=== PATIENT | female | born 1955 | race Caucasian/White ===

== ENCOUNTER 2021-04-26 08:49 | Outpatient (CLI) | payer MEDICARE, MEDICAID, SELFPAY ==
--- NOTE | 2021-04-26 09:23 | ECHO_ITS ---
Patient Info Name: Kalyani García Age: 65 years : 1955 Gender: Female Ht: 63 in Wt: 265 lbs BSA: 2.38 m2 HR: 74 bpm BP: 127 / 76 mmHg Heart Rhythm: Sinus Rhythm Technical Quality: Fair Exam Date: 04/26/2021 9:44 AM Exam Location: [facility] Patient Status: Outpatient Admit Date: 04/26/2021 Staff Ordering Physician: Carl Quiles APRN Works Manager: Mariela Recinos RDCS Attending Provider: Kisha Martinez MD Exam Type: CA echo doppler color flow Study Info Indications - i27.20-Pulmonary hypertension, unspecified Complete two-dimensional, color flow and Doppler transthoracic echocardiogram is performed. History/Risk Factors COPD: On Home Oxygen, On Meds Summary 1. Complete two-dimensional, color flow and Doppler transthoracic echocardiogram is performed. 2. Left ventricular chamber dimension is normal. 3. Left ventricular systolic function is normal, estimated at 55-60%. 4. The left ventricular diastolic function is grade I diastolic dysfunction. 5. E/e' 14 is mildly elevated. 6. Left atrial chamber dimension is mildly enlarged. 7. No pulmonary hypertension, estimated pulmonary arterial systolic pressure is 32 mmHg. Left Ventricle E/e' 14 is mildly elevated. Left ventricular chamber dimension is normal. Left ventricular systolic function is normal, estimated at 55-60%. The left ventricular diastolic function is grade I diastolic dysfunction. Right Ventricle Right ventricular systolic function is normal and with normal TAPSE 2.9 cm. Right ventricular chamber dimension is normal. Left Atria Left atrial chamber dimension is mildly enlarged. Right Atria Right atrial chamber dimension is normal. Aortic Valve The aortic valve is trileaflet. There is no aortic valve stenosis. There is no aortic valve regurgitation. Pulmonic Valve There is no pulmonic regurgitation. Mitral Valve There is no mitral valve stenosis. There is no mitral valve regurgitation. Tricuspid Valve There is no tricuspid valve regurgitation. No pulmonary hypertension, estimated pulmonary arterial systolic pressure is 32 mmHg. Pericardium/Pleural There is no pericardial effusion. Inferior Vena Cava Normal inferior vena cava with >50% collapse upon inspiration consistent with normal right atrial pressure, 5 mmHg. Aorta The aortic root size at the sinus of Valsalva is normal. Left Ventricular Outflow Tract Name Value Normal LVOT 2D LVOT Diameter 2.1 cm LVOT Doppler LVOT Peak Gradient 6 mmHg LVOT Mean Gradient 3 mmHg LVOT VTI 28 cm LVOT VTI/AV VTI Ratio 0.7 LVOT Stroke Volume 100 ml LVOT CO 16.9 l/min LVOT CI 7.1 l/min/m2 Pulmonic Valve Name Value Normal RVOT Doppler
[2021-04-26 10:30] VITALS: PULSE 67; O2SAT 94
[2021-04-26 10:33] VITALS: PULSE 96; O2SAT 86
[2021-04-26 10:34] VITALS: O2SAT 87
[2021-04-26 10:35] VITALS: PULSE 90; O2SAT 90
[2021-04-26 10:45] VITALS: PULSE 70; O2SAT 94
--- NOTE | 2021-04-26 11:05 | HOMEO2EVAL ---
Evaluation was performed at [facility] Home Oxygen Evaluation RC: Home Oxygen (O2) Evaluation Start: 04/26/21 11:03 Freq: Status: Active Protocol: RPE Activity Type Activity Date Activity User E-Sign Co-Sign Detail Recorded Client Recorded Date Recorded By Document 04/26/21 10:30 TONO [id number] 04/26/21 11:05 TONO Document 04/26/21 10:33 TONO [id number] 04/26/21 11:05 TONO Document 04/26/21 10:34 TONO [id number] 04/26/21 11:05 TONO Document 04/26/21 10:35 TONO [id number] 04/26/21 11:05 TONO Document 04/26/21 10:45 TONO [id number] 04/26/21 11:05 TONO 04/26/21 04/26/21 04/26/21 10:30 10:33 10:34 Home O2 Evaluation Test Phase Resting Exercise Exercise Oxygen Delivery Room Air Room Air Nasal Cannula Oxygen Flow Rate (L/min) 1 Pulse Oximetry (90-100 %) 94 86 L 87 L Pulse Rate (60-100 beats/min) 67 96 Ambulation Distance (feet) Home Oxygen Evaluation Comments Treatment Charges O2 Evaluation - Outpatient 04/26/21 04/26/21 10:35 10:45 Home O2 Evaluation Test Phase Exercise Resting Oxygen Delivery Nasal Cannula Room Air Oxygen Flow Rate (L/min) 2 Pulse Oximetry (90-100 %) 90 94 Pulse Rate (60-100 beats/min) 90 70 Ambulation Distance (feet) 600 Home Oxygen Evaluation Comments PT USED WALKER, REQUIRES 2 L WITH ACTIVITY Treatment Charges
--- NOTE | 2021-04-27 14:24 | WPDPFTINT ---
PFT Procedure Performed PFT Procedure Performed Spirometry with Pre/Post Bronchodilator Plethysmography (Lung Vol) Diffusing Cap (DLCO) Flow Vol Loop PFT Interpretation lung volumes were measured with the body plethysmography method. Lung volumes are unremarkable. Spirometry showed diminished expiratory flow rates and a diminished FEV1 to FVC ratio of 66%, consistent with obstructive airway disease. Following administration of a bronchodilator there was no change in the expiratory flow rates. Lung diffusion capacity is mildly reduced at 64% predicted. The flow volume loop is consistent with obstructive airway disease. In comparison to previous study in 2015 the post bronchodilator FVC and FEV1 are now lower by approximately 100 mL each. Lung diffusion capacity is now greater by approximately 15%. Impression: Moderate obstructive airway disease with no response to bronchodilators on this testing. Mildly reduced lung diffusion capacity.
== END 2021-04-26 08:50 | disposition home or self-care (01) ==
PROVIDERS: PCP Nurse Practitioner Family; Visit Provider Internal Medicine Critical Care Medicine
DX: I27.20 Pulmonary hypertension, unspecified (principal); R94.2 Abnormal results of pulmonary function studies
CPT/HCPCS: 93306; 94060; 94618; 94726; 94729

== ENCOUNTER 2022-01-12 09:00 | Outpatient (CLI) | payer MEDICARE, MEDICAID, SELFPAY ==
--- NOTE | ~2022-01-12 | MM_ITS ---
EXAMINATION: MM screening parul BI w palmer HISTORY: Screening TECHNIQUE: Craniocaudal and mediolateral oblique 3-D tomosynthesis images were obtained and synthetic 2-D images were generated. CAD analysis was submitted and interpreted. COMPARISON: No prior mammogram is available for comparison at this institution. BREAST PARENCHYMAL COMPOSITION: There are scattered areas of fibroglandular density. FINDINGS: There is a cluster of calcifications in the right breast centrally. There is no mammographi c evidence for malignancy in the left breast. IMPRESSION: 1. Clustered indeterminate right breast calcifications located centrally. 2. Magnification views are recommended. BI-RADS Category 0: Incomplete: Needs additional imaging evaluation. Reviewed, dictated and finalized at location L.
== END 2022-01-12 09:01 | disposition home or self-care (01) ==
PROVIDERS: PCP Nurse Practitioner Family; Visit Provider Nurse Practitioner Family
DX: Z12.31 Encounter for screening mammogram for malignant neoplasm of breast (principal); R92.8 Other abnormal and inconclusive findings on diagnostic imaging of breast
CPT/HCPCS: 77063; 77067

== ENCOUNTER 2022-01-27 12:54 | Outpatient (CLI) | payer MEDICARE, MEDICAID, SELFPAY ==
--- NOTE | ~2022-01-27 | MM_ITS ---
EXAMINATION: MM diagnostic mammo unilat RT HISTORY: Follow-up right breast calcifications TECHNIQUE: Additional 3-D tomosynthesis images of the right breast were performed and synthetic 2-D i mages were generated. CAD analysis was submitted and interpreted. COMPARISON: 01/12/2022 BREAST PARENCHYMAL COMPOSITION: Breast composed of scattered areas of fibroglandular density FINDINGS: There is a cluster of indeterminate calcifications in the central aspect of the right breas t. There are no suspicious masses or architectural distortion. IMPRESSION: 1. Clustered indeterminate right breast calcifications. 2. Stereotactic right breast biopsy recommended. BI-RADS category 4, suspicious findings. Reviewed, dictated and finalized at location A.
== END 2022-01-27 12:55 | disposition home or self-care (01) ==
LOC: ANHIMG 12:57
PROVIDERS: PCP Nurse Practitioner Family; Visit Provider Nurse Practitioner Family
DX: R92.8 Other abnormal and inconclusive findings on diagnostic imaging of breast (principal)
CPT/HCPCS: 77065

== ENCOUNTER 2025-02-19 10:20 | Emergency (ER) | payer MEDICARE, SELFPAY ==
--- NOTE | ~2025-02-19 | CT_ITS ---
EXAMINATION: CT abdomen pelvis w con DATE: 02/19/2025 12:00 INDICATION: Hernia. Pain. TECHNIQUE: Computed tomography (CT) of the abdomen and pelvis was performed with intravenous contrast. The dose-length product was 1364.35 mGy-cm. COMPARISON: CT abdomen and pelvis 08/19/2017 FINDINGS: There are a few small reticular opacities in the lower lungs. Stable too small to characterize low-attenuation lesion in the right lobe of the liver dating back to 2018. Interval decrease in the size of the previously identified lesion in the left lobe of the liver which currently measures 9 mm, previously measured 1.9 cm. No new liver lesions. Cholecystectomy. Spleen is unremarkable. There are a few too small to characterize low-attenuation lesions in the kidneys. Adrenal glands are stable. Pancreas is unremarkable. Abdominal aorta is not aneurysmal. No enlarged lymph nodes in the abdomen or pelvis. Bladder is unremarkable. CT of the uterus is unremarkable. No free fluid in the abdomen or pelvis. Moderate to large ventral hernia along the anterior pelvic wall with fat and bowel loops in the hernia sac. The opening to the hernia sac measures 6.3 cm. No bowel obstruction at this time. Bones appear osteopenic. Multilevel degenerative change throughout the visualized spine. Grade 1 anterolisthesis of L4 on L5. IMPRESSION: 1. Moderate to large ventral hernia along the anterior pelvic wall with fat and bowel loops in the hernia sac. The opening to the hernia sac measures 6.3 cm. No bowel obstruction at this time. 2. Cholecystectomy. Reviewed, dictated and finalized at location Q.
--- OUTSIDE RECORDS SUMMARY | 2025-02-19 10:25 | XMS_ITS | Clinical Summary ---
Author Organization [facility] Address [address] [place] [address] Care Team Providers Care Geochemist Name Role Phone Tess Landin APRN-SALES REPRESENTATIVE [employer] Primary Care Provider [phone] Source Comments [facility],non-owned Affiliates and Associated Physician Practices is amultiple site organization consisting of ambulatory clinics and hospital sitesin [place], [place], [place] and [place]. This disclosure is being madepursuant to the Care Everywhere program and may not contain all information available regarding this patient. Last updated 18.[facility] Social History Tobacco Use Types Packs/Day Years Used Date Smoking Tobacco: Never Assessed Comments Unknown Sex and Gender Information Value Date Recorded Sex Assigned at Not on file Legal Sex Female 11:58 AM CDT Gender Identity Not on file Sexual Orientation Not on file Plan of Treatment Health Maintenance Due Date Last Done Comments BONE DENSITY TESTING 1955 COLOGUARD (AGES 45-75) - COL ON CA SCREENING 1955 COLON MONITORING 1955 COLONOSCOPY - COLON CA SCREENING 1955 CT COLONOGRAPHY - COLON CA SCREENING 1955 Colorectal Cancer Screening 1955 FIT - COLON CA SCREENING 1955 FLEX SIG - COLON CA SCREENING 1955 LIPID TESTING 1955 MAMMOGRAM 1955 HEPATITIS C SCREENING 05/02/1974 DTAP/TDAP/TD VACCINES (1 - Tdap) 1975 PNEUMOCOCCAL VACCINE 50+ (1 of 1 - PCV) 2006 ZOSTER VACCINE (1 of 2) 2006 COVID-19 VACCINE ( - 2023-2 5 season) 2024 DEPRESSION SCREENING 06/25/2024 INFLUENZA VACCINE (#1) 2025 Respiratory Syncytial Virus (RSV) Vaccine Pt: or over 60 yrs (1 - 1-dose 75+ series) 2031 HEPATITIS B VACCINE Aged Out No longe r eligible based on patient's age to complete this topic HIB VACCINE Aged Out No longer eligi ble based on patient's age to complete this topic HPV VACCINE Aged Out No longer eligi ble based on patient's age to complete this topic MENINGOCOCCAL (Group B) VACC INE SHARED DECISION-MAKING Aged Out No longer eligibl e based on patient's age to complete this topic MENINGOCOCCAL GROUPS A/C/Y/W VACCINE Aged Out No longer eligible b ased on patient's age to complete this topic Insurance [facility] Care Teams Geochemist Relationship Specialty Start Date End Date Tess Landin APRN-CNP [address] [place] [id number] PCP - General 04/30/20
[2025-02-19 10:31] VITALS: BP 152/75; BP 161/73; PULSE 74; RESP 17; RESP 24; TEMP 37; O2SAT 90; O2SAT 93
--- NOTE | 2025-02-19 10:51 | ED.GENADULT ---
HPI - General Adult General Chief complaint: Abdominal Pain Stated complaint: ?bleeding hernia Time Seen by Provider: 02/19/25 10:24 History of Present Illness HPI narrative: 61-year-old female presented to the emergency department for evaluation for bleeding around her umbilical hernia. Patient does have a longstanding large umbilical hernia. Patient began noticing some bleeding from the anterior left side of the hernia. Patient denies any abdominal pain. Patient began noticing some skin breakdown and bleeding from the lateral edge of the umbilical hernia last night. Related Data Home Medications ?Medication ?Instructions ?Recorded ?Confirmed ?Last Taken ?Type albuterol sulfate 2.5 mg/3 mL 2.5 mg inhalation Q6H 09/15/19 07/26/20 Unknown History (0.083 %) solution for nebulization albuterol sulfate 90 mcg/actuation 1 puff inhalation Q4H PRN 09/15/19 07/26/20 Unknown History aerosol inhaler (Ventolin HFA) aspirin 81 mg tablet,delayed 81 mg PO DAILY 09/15/19 07/26/20 Unknown History release (Adult Aspirin Regimen) cholecalciferol (vitamin D3) 1,250 50,000 unit PO WEEKLY 09/15/19 07/26/20 Unknown History mcg (50,000 unit) oral wafer furosemide 20 mg tablet 20 mg PO QAM 09/15/19 07/26/20 Unknown History hydrocodone 10 mg-acetaminophen 1 tablet PO Q6H PRN 09/15/19 07/26/20 Unknown History 325 mg tablet lisinopril 10 mg tablet 10 mg PO DAILY 09/15/19 07/26/20 Unknown History omeprazole 20 mg capsule,delayed 20 mg PO DAILY 09/15/19 07/26/20 Unknown History release spironolactone 100 mg tablet 50 mg PO DAILY 09/15/19 07/26/20 Unknown History Allergies Allergy/AdvReac Type Severity Reaction Status Date / Time No Known Allergies Allergy Unverified 03/31/21 09:46 Review of Systems Review of Systems: All systems reviewed & are unremarkable except as noted in HPI and below PMFSH Past Medical History Medical History (Updated 02/19/25 @ 12:47 by Marcos Kasper MD) BREN (obstructive sleep apnea) Pulmonary hypertension Arthritis Morbid obesity BREN treated with BiPAP COPD (chronic obstructive pulmonary disease) Smoking Diastolic dysfunction Dyslipidemia Essential hypertension Surgical History Surgical History H/O tubal ligation Family History Family History Father Family history of diabetes mellitus in first degree relative Acute myocardial infarction Diabetes mellitus Hypertension Family history of heart disease in male family member before age 55 Patient's father is in good health Mother Hypertension Family history of Alzheimer's disease Patient's mother is in good health Sibling Family history of chronic obstructive pulmonary disease Patient's sister is in good health Grandparent Family history of malignant neoplasm of breast Other Family history of cardiovascular disease Social History Social History Smoking status: Current every day smoker Smoking end date: 06/25/14 Alcohol intake: current Exam Narrative: APPEARANCE: Well appearing, no pain, no distress, well-nourished. HEAD: normocephalic, atraumatic. EYES: PERRLA/EOMI, conjunctivae clear. NOSE: Normal no drainage EARS:TMS clear with good light reflex. THROAT: Pharynx clear, no exudate. NECK: Supple. No adenopathy, no masses. RESPIRATORY: Airway patent, respirations nonlabored. Clear to auscultation bilaterally, no rales, rhonchi, wheezing. CARDIOVASCULAR: Regular rate and rhythm without murmurs rubs or gallops. ABDOMINAL: Soft, nontender, nondistended, normal bowel sounds MUSCULOSKELETAL: Moves all extremities. Strength/ROM intact, No edema, No calf tenderness. NEURO: Alert. Cranial nerves II through XII intact. Good gait. Good coordination SKIN: Skin breakdown around left side of umbilical hernia Course Vital Signs Vital signs: Vital Signs Temperature 98.6 F 02/19/25 10:31 Pulse Rate 74 02/19/25 10:31 Respiratory Rate 24 H 02/19/25 10:31 Blood Pressure 161/73 H 02/19/25 10:31 Pulse Oximetry 90 02/19/25 10:31 Temperature 98.6 F 02/19/25 10:31 Pulse Rate 78 02/19/25 13:10 Respiratory Rate 17 02/19/25 13:10 Blood Pressure 129/98 H 02/19/25 13:10 Pulse Oximetry 91 02/19/25 13:10 Medical Decision Making MDM Narrative Medical decision making narrative: 69-year-old female presents to the emergency department for evaluation for bleeding from the wound hand skin breakdown on along the side of her umbilical hernia. Patient is currently afebrile with no leukocytosis and hemoglobin of 13.9. INR of 1.1 no acute abnormalities on her CMP CT scan does confirm a large hernia with no evidence of obstruction. Hernia was able to be reduced. Patient does have some skin breakdown at approximately the 1-3 o'clock range of the hernia. No wound requiring repair. Patient was educated on wound care and patient was provided abdominal binder for comfort. Patient was also provided outpatient follow-up with surgery. Differential Diagnosis Differential Diagnosis: Incarcerated hernia, laceration, candidiasis, skin breakdown, umbilical hernia Vital Signs Vital Signs: Vital Signs Temperature 98.6 F 02/19/25 10:31 Pulse Rate 74 02/19/25 10:31 Respiratory Rate 24 H 02/19/25 10:31 Blood Pressure 161/73 H 02/19/25 10:31 Pulse Oximetry 90 02/19/25 10:31 Temperature 98.6 F 02/19/25 10:31 Pulse Rate 78 02/19/25 13:10 Respiratory Rate 17 02/19/25 13:10 Blood Pressure 129/98 H 02/19/25 13:10 Pulse Oximetry 91 02/19/25 13:10 Lab Data Lab results reviewed: Yes I reviewed the patient's lab results. 02/19/25 10:54 02/19/25 10:54 Labs: Lab Results 02/19/25 Range/Units 10:54 WBC 6.5 (4.5-10.0) K/mm3 RBC 5.22 (4.2-5.4) M/mm3 Hgb 13.9 (12.0-15.0) g/dL Hct 45.5 (37.0-47.0) % MCV 87.2 (80-100) fl MCH 26.6 (26-34) pg MCHC 30.5 L (32-36) g/dl RDW 14.4 (11.5-14.5) % Plt Count 241 (150-375) k/mm3 MPV 9.0 (7.4-10.4) fl Immature Gran % (Auto) 0.3 (0-0.5) % Neut % (Auto) 73.1 (45.5-73.1) % Lymph % (Auto) 13.3 L (18.3-44.2) % [place] % (Auto) 11.6 H (2.6-8.5) % Eos % (Auto) 1.4 (0-4.4) % Baso % (Auto) 0.3 (0.2-1.2) % Lymph # (Auto) 0.86 L (0.9-3.2) K/mm3 [place] # (Auto) 0.8 H (0.1-0.6) K/mm3 Eos # (Auto) 0.1 (0-0.3) K/mm3 Baso # (Auto) 0.0 (0.0-0.1) K/mm3 Abs Immat Gran (auto) 0.02 (0.00-0.031) K/mm3 Absolute Neuts (auto) 4.7 (1.3-6.7) K/mm3 Absolute Nucleated RBC 0.000 (0.0-0.012) K/mm3 Nucleated RBC % 0.0 (0.0-0.2) % PT 13.9 (11.1-14.7) Seconds INR 1.1 APTT 27.6 (22.3-36.8) Seconds Sodium 135 L (137-145) mmol/L Potassium 4.6 (3.4-5.0) mmol/L Chloride 98 (98-107) mmol/L Carbon Dioxide 33 H (22-30) mmol/L Anion Gap 4 (4-12) mmol/L BUN 11 (7-17) mg/dL Creatinine 0.55 L (0.7-1.0) mg/dL Estim Creat Clear Calc Not Reportable Estimated GFR > 60 (59 - ) Glucose 110 (65-110) mg/dL Lactic Acid 1.3 (0.7-2.0) mmol/L Calcium 9.2 (8.4-10.2) mg/dL Total Bilirubin 0.7 (0.2-1.3) mg/dL AST 32 (14-36) U/L ALT 22 (6-35) U/L Alkaline Phosphatase 65 (38-126) U/L Total Protein 7.0 (6.3-8.2) g/dL Albumin 3.8 (3.5-5.1) g/dL Imaging Data Radiologist's impression: Impressions Abdomen/Pelvis CT 02/19/25 12:06 IMPRESSION: 1. Moderate to large ventral hernia along the anterior pelvic wall with fat and bowel loops in the hernia sac. The opening to the hernia sac measures 6.3 cm. No bowel obstruction at this time. 2. Cholecystectomy. Discharge Plan Discharge Clinical Impression: Hernia, Wound of abdomen Patient Disposition: Home Condition: Stable Instructions: Antibiotic Form, Umbilical Hernia (ED), Abdominal Binder (ED) Additional Instructions: Wound care as directed. Abdominal binder as directed. Have close follow-up with surgery. If you have any worsening symptoms then please call or return to the emergency department. Patient Language: Faroese Prescriptions: No Action spironolactone 100 mg tablet 50 mg PO DAILY furosemide 20 mg tablet 20 mg PO QAM cholecalciferol (vitamin D3) 50,000 unit wafer 50,000 unit PO WEEKLY albuterol sulfate [Ventolin HFA] 90 mcg/actuation HFA aerosol inhaler 1 puff INHALATION Q4H PRN omeprazole 20 mg capsule,delayed release(DR/EC) 20 mg PO DAILY lisinopril 10 mg tablet 10 mg PO DAILY hydrocodone-acetaminophen 10-325 mg tablet 1 tablet PO Q6H PRN aspirin [Adult Aspirin Regimen] 81 mg tablet,delayed release (DR/EC) 81 mg PO DAILY albuterol sulfate 2.5 mg /3 mL (0.083 %) solution for nebulization 2.5 mg INHALATION Q6H Bevespi Aerosphere 9-4.8 mcg HFA aerosol inhaler 2 puff inhalation Q12H 30 Days Qty: 10.7 5RF Follow-up/Referrals: NOELLE,JORJE SALINAS [Primary Care Provider] Kelby Santos MD [Physician, General Surgery]
[2025-02-19 11:01] VITALS: PULSE 71; RESP 16; O2SAT 94
[2025-02-19 11:06] LABS: Hematocrit 45.5 % (37.0-47.0); Hemoglobin 13.9 g/dL (12.0-15.0); Immature Granulocyte Percent A 0.3 % (0-0.5); Lymphocytes Absolute Auto 0.86 K/mm3 (0.9-3.2); Mean Corpuscular HGB Conc 30.5 g/dl (32-36); Mean Corpuscular Hemoglobin 26.6 pg (26-34); Mean Corpuscular Volume 87.2 fl (80-100); Nucleated Red Blood Cells Absolute Auto 0.000 K/mm3 (0.0-0.012); Nucleated Red Blood Cells Perc 0.0 % (0.0-0.2); Platelet Count Result 241 k/mm3 (150-375); Red Blood Count 5.22 M/mm3 (4.2-5.4); White Blood Count 6.5 K/mm3 (4.5-10.0)
[2025-02-19 11:18] LABS: Alanine Aminotransferase 22 U/L (6-35); Albumin Level 3.8 g/dL (3.5-5.1); Alkaline Phosphatase 65 U/L (38-126); Anion Gap 4 mmol/L (4-12); Aspartate Amino Transferase 32 U/L (14-36); Bilirubin,Total 0.7 mg/dL (0.2-1.3); Blood Urea Nitrogen 11 mg/dL (7-17); Calcium 9.2 mg/dL (8.4-10.2); Carbon Dioxide 33 mmol/L (22-30); Chloride 98 mmol/L (98-107); Estimated Glomerular Filt Rate > 60; Glucose 110 mg/dL (65-110); Potassium 4.6 mmol/L (3.4-5.0); Sodium 135 mmol/L (137-145); Total Protein 7.0 g/dL (6.3-8.2)
[2025-02-19 11:21] LABS: INR 1.1; Partial Thromboplastin Time 27.6 Seconds (22.3-36.8); Prothrombin Time 13.9 Seconds (11.1-14.7)
[2025-02-19 11:46] VITALS: BP 122/77; PULSE 72; RESP 18; O2SAT 95
[2025-02-19 13:10] VITALS: BP 129/98; PULSE 78; RESP 17; O2SAT 91
== END 2025-02-19 13:49 | disposition home or self-care (01) ==
PROVIDERS: Emergency Provider Emergency Medicine; PCP Nurse Practitioner Family
DX: K43.9 Ventral hernia without obstruction or gangrene (principal); L98.8 Other specified disorders of the skin and subcutaneous tissue; I27.20 Pulmonary hypertension, unspecified; I11.9 Hypertensive heart disease without heart failure; J44.9 Chronic obstructive pulmonary disease, unspecified; E66.01 Morbid (severe) obesity due to excess calories; E78.5 Hyperlipidemia, unspecified; G47.33 Obstructive sleep apnea (adult) (pediatric); M19.90 Unspecified osteoarthritis, unspecified site; Z87.891 Personal history of nicotine dependence; Z90.49 Acquired absence of other specified parts of digestive tract; Z79.899 Other long term (current) drug therapy; Z79.82 Long term (current) use of aspirin
CPT/HCPCS: 36415; 74177; 80053; 83605; 85025; 85610; 85730; 99284; Q9967

== ENCOUNTER 2025-04-20 12:25 | Emergency (ER) | payer MEDICARE, SELFPAY ==
--- NOTE | ~2025-04-20 | CT_ITS ---
EXAMINATION: CT abdomen pelvis w con DATE: 04/20/2025 13:29 INDICATION: Epigastric pain TECHNIQUE: Computed tomography (CT) of the abdomen and pelvis was performed with 100 mL Omnipaque-350 intravenous contrast. Automated exposure control and iterative reconstruction technique were employed. The dose-length product was 1338.92 mGy-cm. COMPARISON: None FINDINGS: Mild bibasilar atelectasis. Heart size is normal. No pericardial or pleural effusion. Mild intra and extra hepatic biliary ductal dilation likely related to prior cholecystectomy with surgical clips the gallbladder fossa. Spleen, pancreas and bilateral adrenal glands are normal. Small bilateral renal cysts the largest on the right measuring 1.6 cm. Large umbilical hernia containing loops of small bowel. There appears to be compression of the largest contrast opacifying vein draining the herniated portion of the bowel. There is mild stranding of the mesentery of the herniated bowel as well as a bowel immediately proximal to the herniation. No bowel dilation to suggest obstruction. Normal appendix. Mild scattered colonic diverticulosis without adjacent from trace stranding to suggest diverticular colitis. Bladder, anteverted uterus and bilateral adnexa are unremarkable. No free intraperitoneal gas or fluid. No pathologically enlarged abdominal or pelvic lymphadenopathy. Moderate lumbar and lower thoracic spondylosis with bridging osteophytes at multiple levels consistent with diffuse idiopathic skeletal hyperostosis (DISH). There is also posterior fusion across the bilateral L4-L5 and L5-S1 facet joints. IMPRESSION: 1. Large umbilical hernia containing multiple loops of small bowel without obstruction. There is mesenteric edema associated with the herniated bowel which could relate to pulmonary venous congestion with compression of one of the contrast opacified draining veins as it extends through the orifice of the hernia. Reviewed, dictated and finalized at location A. IMPRESSION: 1. Large umbilical hernia containing multiple loops of small bowel without obst ruction. There is mesenteric edema associated with the herniated bowel which co uld relate to pulmonary venous congestion with compression of one of the contra st opacified draining veins as it extends through the orifice of the hernia.
[2025-04-20 12:24] VITALS: BP 148/74; PULSE 71; RESP 18; TEMP 36.4; O2SAT 95
[2025-04-20 12:46] LABS: Hematocrit 48.1 % (37.0-47.0); Hemoglobin 14.9 g/dL (12.0-15.0); Immature Granulocyte Percent A 0.3 % (0-0.5); Lymphocytes Absolute Auto 0.87 K/mm3 (0.9-3.2); Mean Corpuscular HGB Conc 31.0 g/dl (32-36); Mean Corpuscular Hemoglobin 27.0 pg (26-34); Mean Corpuscular Volume 87.3 fl (80-100); Nucleated Red Blood Cells Absolute Auto 0.000 K/mm3 (0.0-0.012); Nucleated Red Blood Cells Perc 0.0 % (0.0-0.2); Platelet Count Result 234 k/mm3 (150-375); Red Blood Count 5.51 M/mm3 (4.2-5.4); White Blood Count 9.2 K/mm3 (4.5-10.0)
[2025-04-20] MEDS: MORPHINE SULFATE (*CRX) 4 MG/ML INJ IV PUSH (13:03)
[2025-04-20] MEDS: ONDANSETRON INJ 4 MG/2 ML VIAL IV PUSH (13:03)
[2025-04-20 13:12] LABS: Alanine Aminotransferase 20 U/L (6-35); Albumin Level 4.4 g/dL (3.5-5.1); Alkaline Phosphatase 87 U/L (38-126); Anion Gap 9 mmol/L (4-12); Aspartate Amino Transferase 24 U/L (14-36); Bilirubin,Total 0.8 mg/dL (0.2-1.3); Blood Urea Nitrogen 14 mg/dL (7-17); Calcium 9.5 mg/dL (8.4-10.2); Carbon Dioxide 28 mmol/L (22-30); Chloride 99 mmol/L (98-107); Estimated CRCL calculation 90 ml/min; Estimated Glomerular Filt Rate > 60; Glucose 116 mg/dL (65-110); Lipase 69 U/L (23-300); Potassium 4.5 mmol/L (3.4-5.0); Sodium 136 mmol/L (137-145); Total Protein 7.7 g/dL (6.3-8.2)
[2025-04-20 13:15] VITALS: O2SAT 85; O2SAT 96
--- NOTE | 2025-04-20 13:15 | PC.NURSE ---
Pt was given moprhine over 2 mn, pt reports hx of COPD and sleep apnea and yet does not use her prescribed o2 and CPAP at night. pt o2 decreased to 85% on RA after medical doctor nuclear medicine. Placed on 2l NC and oxygen increased.
[2025-04-20 13:16] VITALS: BP 123/69; PULSE 64; RESP 18; O2SAT 96
--- NOTE | 2025-04-20 13:38 | ED.ABDPAIN ---
HPI - Abdominal Pain General Chief Complaint: Abdominal Pain Stated Complaint: abd pain Time Seen by Provider: 04/20/25 12:36 History of Present Illness HPI narrative: Patient is a 69-year-old female who presents ER with abdominal pain. It is in the epigastric region he has full in pushing up towards her chest. She feels bloated and nauseous and is belching. She did have a bowel movement this morning. Symptoms were sudden onset couple hours prior to arrival. No alleviating factors. Patient has a known umbilical hernia related to a previous gallbladder surgery. Related Data Home Medications ?Medication ?Instructions ?Recorded ?Confirmed ?Last Taken ?Type albuterol sulfate 2.5 mg/3 mL 2.5 mg inhalation Q6H 09/15/19 03/16/25 Unknown History (0.083 %) solution for nebulization aspirin 81 mg tablet,delayed 81 mg PO DAILY 09/15/19 03/16/25 Unknown History release (Adult Aspirin Regimen) cholecalciferol (vitamin D3) 1,250 50,000 unit PO WEEKLY 09/15/19 03/16/25 Unknown History mcg (50,000 unit) oral wafer furosemide 20 mg tablet 20 mg PO QAM 09/15/19 03/16/25 Unknown History hydrocodone 10 mg-acetaminophen 1 tablet PO Q6H PRN 09/15/19 03/16/25 Unknown History 325 mg tablet lisinopril 10 mg tablet 10 mg PO DAILY 09/15/19 03/16/25 Unknown History omeprazole 20 mg capsule,delayed 20 mg PO DAILY 09/15/19 03/16/25 Unknown History release spironolactone 100 mg tablet 50 mg PO DAILY 09/15/19 03/16/25 Unknown History Allergies Allergy/AdvReac Type Severity Reaction Status Date / Time No Known Allergies Allergy Verified 04/20/25 12:29 Review of Systems Review of Systems: All systems reviewed & are unremarkable except as noted in HPI and below Constitutional: Constitutional: Reports no additional constitutional complaints ENT: Reports system reviewed and no additional complaints, except as documented Cardiovascular: Cardiovascular: Reports no additional cardiovascular complaints Respiratory: Respiratory: Reports no additional respiratory complaints Gastrointestinal: Gastrointestinal: Reports no additional gastrointestinal complaints PMFSH Past Medical History Medical History BREN (obstructive sleep apnea) Pulmonary hypertension Arthritis Morbid obesity BREN treated with BiPAP COPD (chronic obstructive pulmonary disease) Smoking Diastolic dysfunction Dyslipidemia Essential hypertension Surgical History Surgical History H/O tubal ligation Family History Family History Father Family history of diabetes mellitus in first degree relative Acute myocardial infarction Diabetes mellitus Hypertension Family history of heart disease in male family member before age 55 Patient's father is in good health Mother Hypertension Family history of Alzheimer's disease Patient's mother is in good health Sibling Family history of chronic obstructive pulmonary disease Patient's sister is in good health Grandparent Family history of malignant neoplasm of breast Other Family history of cardiovascular disease Social History Social History (Updated 03/16/25 @ 09:43 by Paula Wills MA) Smoking status: Former smoker Smoking end date: 06/25/14 Alcohol intake: current Exam Narrative: GENERAL: Well-appearing, well-nourished, and in no acute distress. HEAD: Normocephalic, atraumatic. EYES: PERRL and EOMI. ENT: Mucous membranes moist. CHEST: Clear to auscultation. No respiratory distress. HEART: Regular rate and rhythm. Normal peripheral pulses. ABDOMEN: Soft, mild epigastric pain, nondistended. Buldging hernia that is purple, reducible w/o sedation. EXTREMITIES: Normal range of motion. No edema. SKIN: Warm, dry, no rash. NEURO: Alert and oriented x3. PSYCH: Normal mood and affect. Course Course Emergency Course: Patient and family informed of lab and imaging results. Discussed treatment plan including abdominal binder. Will also provide stool softeners as she is having hard time having a bowel movement. I do not think this is related to her weight loss medication. Discussed with surgery, Dr. Tineo, as well. Vital Signs Vital signs: Vital Signs Temperature 97.6 F 04/20/25 12:24 Pulse Rate 71 04/20/25 12:24 Respiratory Rate 18 04/20/25 12:24 Blood Pressure 148/74 H 04/20/25 12:24 Pulse Oximetry 95 04/20/25 12:24 Temperature 97.6 F 04/20/25 12:24 Pulse Rate 64 04/20/25 13:16 Respiratory Rate 18 04/20/25 13:16 Blood Pressure 123/69 04/20/25 13:16 Pulse Oximetry 96 04/20/25 13:16 Oxygen Delivery Nasal Cannula 04/20/25 13:15 Oxygen Flow Rate 2 04/20/25 13:15 MDM - Abdominal Pain Differential Diagnosis Differential diagnosis: Likely calculus of kidney, constipation, diverticulitis, gastroenteritis, pancreatitis, small bowel obstruction and other (Incarcerated hernia) Lab Data Attestation: I reviewed the patient's lab results. 04/20/25 12:39 04/20/25 12:39 Labs: Lab Results 04/20/25 04/20/25 Range/Units 12:39 15:52 WBC 9.2 (4.5-10.0) K/mm3 RBC 5.51 H (4.2-5.4) M/mm3 Hgb 14.9 (12.0-15.0) g/dL Hct 48.1 H (37.0-47.0) % MCV 87.3 (80-100) fl MCH 27.0 (26-34) pg MCHC 31.0 L (32-36) g/dl RDW 14.8 H (11.5-14.5) % Plt Count 234 (150-375) k/mm3 MPV 8.8 (7.4-10.4) fl Immature Gran % (Auto) 0.3 (0-0.5) % Neut % (Auto) 83.4 H (45.5-73.1) % Lymph % (Auto) 9.4 L (18.3-44.2) % Davis % (Auto) 6.1 (2.6-8.5) % Eos % (Auto) 0.5 (0-4.4) % Baso % (Auto) 0.3 (0.2-1.2) % Lymph # (Auto) 0.87 L (0.9-3.2) K/mm3 Davis # (Auto) 0.6 (0.1-0.6) K/mm3 Eos # (Auto) 0.1 (0-0.3) K/mm3 Baso # (Auto) 0.0 (0.0-0.1) K/mm3 Abs Immat Gran (auto) 0.03 (0.00-0.031) K/mm3 Absolute Neuts (auto) 7.7 H (1.3-6.7) K/mm3 Absolute Nucleated RBC 0.000 (0.0-0.012) K/mm3 Nucleated RBC % 0.0 (0.0-0.2) % Sodium 136 L (137-145) mmol/L Potassium 4.5 (3.4-5.0) mmol/L Chloride 99 (98-107) mmol/L Carbon Dioxide 28 (22-30) mmol/L Anion Gap 9 (4-12) mmol/L BUN 14 (7-17) mg/dL Creatinine 0.62 L (0.7-1.0) mg/dL Estim Creat Clear Calc 90 ml/min Estimated GFR > 60 (59 - ) Glucose 116 H (65-110) mg/dL Calcium 9.5 (8.4-10.2) mg/dL Total Bilirubin 0.8 (0.2-1.3) mg/dL AST 24 (14-36) U/L ALT 20 (6-35) U/L Alkaline Phosphatase 87 (38-126) U/L Total Protein 7.7 (6.3-8.2) g/dL Albumin 4.4 (3.5-5.1) g/dL Lipase 69 (23-300) U/L Urine Color Pending Urine Appearance Pending Urine pH Pending Ur Specific Felch Pending Urine Protein Pending Urine Glucose (UA) Pending Urine Ketones Pending Ur Blood (Man) Pending Urine Nitrate Pending Urine Bilirubin Pending Urine Urobilinogen Pending Leukocyte Esterase Rfl Pending Imaging Data Radiologist's impression: ITS Impressions Abdomen/Pelvis CT 04/20/25 13:33 IMPRESSION: 1. Large umbilical hernia containing multiple loops of small bowel without obstruction. There is mesenteric edema associated with the herniated bowel which could relate to pulmonary venous congestion with compression of one of the contrast opacified draining veins as it extends through the orifice of the hernia. Discharge Plan Discharge Clinical Impression: Incarcerated hernia of abdominal cavity Patient Disposition: Home Condition: Stable Instructions: Ventral Hernia (ED) Additional Instructions: Follow-up with general surgery for further evaluation. Return ER if you cannot keep down food water, you have increased pain, you cannot reduce your hernia, or you have additional concerns. Patient Language: Japanese Prescriptions: New docusate sodium [Colace] 100 mg capsule 100 mg PO BID Qty: 14 0RF No Action spironolactone 100 mg tablet 50 mg PO DAILY furosemide 20 mg tablet 20 mg PO QAM cholecalciferol (vitamin D3) 50,000 unit wafer 50,000 unit PO WEEKLY omeprazole 20 mg capsule,delayed release(DR/EC) 20 mg PO DAILY lisinopril 10 mg tablet 10 mg PO DAILY hydrocodone-acetaminophen 10-325 mg tablet 1 tablet PO Q6H PRN aspirin [Adult Aspirin Regimen] 81 mg tablet,delayed release (DR/EC) 81 mg PO DAILY albuterol sulfate 2.5 mg /3 mL (0.083 %) solution for nebulization 2.5 mg INHALATION Q6H Bevespi Aerosphere 9-4.8 mcg HFA aerosol inhaler 2 puff inhalation Q12H 30 Days Qty: 10.7 5RF Follow-up/Referrals: NOELLE,JORJE SALINAS [Primary Care Provider] - 1 Week Kelby Santos MD [Physician, General Surgery] - 1 Week
--- OUTSIDE RECORDS SUMMARY | 2025-04-20 14:55 | XMS_ITS | Clinical Summary ---
Author Organization [facility] Address [address] [address] Care Team Providers Care Stock Raiser Name Role Phone Tess Landin APRN-FINISHING SUPERVISOR Primary Care Provider [phone] Source Comments [facility],non-owned Affiliates and Associated Physician Practices is amultiple site organization consisting of ambulatory clinics and hospital sitesin [place], [place], [place] and [place]. This disclosure is being madepursuant to the Care Everywhere program and may not contain all information available regarding this patient. Last updated 18.[facility] Social History Tobacco Use Types Packs/Day Years [...] 2006 ZOSTER VACCINE (1 of 2) 2006 DEPRESSION SCREENING 06/25/2024 COVID-19 VACCINE (1 - 2023-2 5 season) 2025 INFLUENZA VACCINE (#1) 2025 Respiratory Syncytial Virus [...] patient's age to complete this topic Insurance [facility] Care Teams Stock Raiser Relationship Specialty Start Date End Date Tess Landin APRN-CNP [address] [place] [id number] PCP - General 04/30/20
--- NOTE | 2025-04-20 15:12 | PC.NURSE ---
Pt attempted to use bathroom and missed the hat in the toilet. Md made aware. No new orders.
[2025-04-20 16:02] LABS: Add Urine Microscopic? YES; Appearance Urine Clear (Clear); Glucose Urine UA Negative (Negative); Leukocyte Esterase Ur Negative LEU/UL (Negative); Nitrate Urine Negative (Negative); Non Pathogenic Casts 0-2; Specific Grav Ur > 1.045 (1.001-1.035)
[2025-04-20 16:33] VITALS: BP 100/60; PULSE 73; O2SAT 92
== END 2025-04-20 16:36 | disposition home or self-care (01) ==
PROVIDERS: Emergency Provider Emergency Medicine; PCP Nurse Practitioner Family
DX: K42.0 Umbilical hernia with obstruction, without gangrene (principal); I27.20 Pulmonary hypertension, unspecified; I11.9 Hypertensive heart disease without heart failure; E78.5 Hyperlipidemia, unspecified; J44.9 Chronic obstructive pulmonary disease, unspecified; G47.33 Obstructive sleep apnea (adult) (pediatric); Z87.891 Personal history of nicotine dependence
CPT/HCPCS: 36415; 74177; 80053; 81001; 83690; 85025; 96374; 96375; 99284; J2270; J2405; Q9967

== ENCOUNTER 2025-05-28 07:32 | Outpatient (CLI) | payer MEDICARE, SELFPAY ==
--- NOTE | 2025-05-28 | EST_ITS ---
Patient Info Name: Kalyani García Age: 70 years : 1955 Gender: Female Ht: 63 in Wt: 245 lbs BSA: 2.29 m2 HR: 64 bpm BP: 125 / 48 mmHg Exam Date: 05/28/2025 9:21 AM Patient Status: O Admit Date: 05/28/2025 Exam Type: CA stress adair w NM A regadenoson stress test was performed. Staff Referring Physician: Rolando Ramirez DO Attending Provider: Rolando Ramirez DO Exercise Technologist: Kacie Bergeron Exercise Physician: Rolando Ramirez DO Summary 1. 1. Negative lexiscan stress test for ischemic ST changes by ECG criteria. 2. 2. Stable hemodynamics throughout the test. 3. 3. Nuclear scan to follow and will be reported separately. Please correlate with it. 4. 4. Patient informed of the above results. Protocol: Lexiscan Stress ECG Details Stage: STAGE 1 Duration (min): 0 min : 59 sec HR (bpm): 101 SBP (mmHg): 125 DBP (mmHg): 58 Stage: RECOVERY Duration (min): 1 min : 0 sec HR (bpm): 82 SBP (mmHg): 125 DBP (mmHg): 58 Stage: RECOVERY Duration (min): 2 min : 0 sec HR (bpm): 82 SBP (mmHg): 125 DBP (mmHg): 58 Stage: RECOVERY Duration (min): 2 min : 28 sec HR (bpm): 76 SBP (mmHg): 125 DBP (mmHg): 58 Stage: RECOVERY Duration (min): 3 min : 0 sec HR (bpm): 72 SBP (mmHg): 131 DBP (mmHg): 62 Stage: RECOVERY Duration (min): 3 min : 41 sec HR (bpm): 76 SBP (mmHg): 131 DBP (mmHg): 62 Rest HR: 70 bpm Peak HR: 101 bpm Rest Sys BP: 139 mmHg Peak Sys BP: 131 mmHg Max Pred HR: 151 bpm % Max Pred HR: 67 % Target HR: 128 bpm Max RPP: 13,231 bpm*mmHg Termination Reason: Completed protocol Cardiac Symptoms: None Total Time: 1 min : 0 sec Rest Faulkner BP: 75 mmHg Peak Faulkner BP: 62 mmHg Total Dose: 0.4 mg Resting ECG Sinus rhythm, RBBB. Stress ECG No ST changes. Arrhythmias None. Report Signatures
--- NOTE | ~2025-05-28 | NM_ITS ---
EXAMINATION: NM adair stress w perfusion DATE: 05/28/2025 10:31 INDICATION: Encounter for preprocedural cardiovascular examination TECHNIQUE: Rest images were obtained following intravenous administration of 10.8 mCi Tc99m tetrofosmin (Myoview). The patient was infused intravenously with Lexiscan (Regadenoson). Then, 31.8 mCi Tc99m tetrofosmin (Myoview) was administered intravenously, and stress images were obtained. Data was denise nstructed into short axis and horizontal and vertical long axis SPECT images. Gated SPECT images were also obtained. COMPARISON: None. FINDINGS: There is no definite reversible or fixed perfusion abnormality to suggest ischemia or infarction. There is normal left ventricular chamber size, wall motion and ejection fraction. Left ventricular ejection fraction measures 67%. IMPRESSION: 1. Normal myocardial perfusion at rest and during stress. 2. Left ventricular ejection fraction measuring 67%. Reviewed, dictated and finalized at location A. BOLTER OPERATOR
--- OUTSIDE RECORDS SUMMARY | 2025-05-28 07:37 | XMS_ITS | Clinical Summary ---
Author Organization [facility] Address [address] [place] [id number] Care Team Providers Care Molding Line Operator Name Role Phone Tess Landin HAMZAH Primary Care Provider [phone] Allergies No known active allergies Medications aspirin EC (ASPIRIN EC) 81 MG tablet Active ibuprofen 800 MG tabletIndication s:Lumbar back pain with radiculopathy affecting right lower extremity Take 1 tablet (800 mg total) by mouth every 8 (eight) hours as needed for Pain. 90 tablet 2 020 Active vitamin D3, cholecalciferol, 75 MCG (3000 UT) Tab tabletIndication s:Vitamin D deficiency Take 1 tablet (3,000 Units total) by mouth daily. 90 tablet 3 020 Active Elastic Bandages & Supports (KNEE BRACE/HINGED L/XL) MiscIndications: Chronic pain of right knee Use daily for support to help with pain 1 each 020 Active NEBULIZER DEVICE, DME,Indications: Chronic obstructive pulmonary disease, unspecified COPD type (CMS/HCC HHS/HCC) Take 1 Device by nebulization every 4 (four) hours as needed. 1 Device 022 Active MOTORIZED SCOOTER, DME,Indications: Unilateral emphysema (CMS/HCC HHS/HCC),Chronic midline low back pain without sciatica,Chronic pain of right knee,Polyarthral zuly,Impaired mobility and activities of daily living 1 Device by Other route daily. 1 Device 022 Active triamcinolone (KENALOG) 0.1 % ointmentIndicati ons:Other atopic dermatitis Apply topically 2 (two) times daily. 453.6 g 1 022 Active cyclobenzaprine (FLEXERIL) 5 MG tabletIndication s:Pulled muscle Take 1 tablet (5 mg total) by mouth 3 (three) times daily as needed for Muscle Spasms. 30 tablet 023 Active albuterol (PROVENTIL) (2.5 MG/3ML) 0.083% nebulizer solutionIndicati ons:Pulmonary emphysema, unspecified emphysema type (CMS/HCC HHS/HCC) Take 3 mLs (2.5 mg total) by nebulization every 6 (six) hours as needed for Wheezing. 360 mL 6 023 Active furosemide (LASIX) 20 MG tabletIndication s:Chronic congestive heart failure, unspecified heart failure type (CMS/HCC HHS/HCC) Take 1 tablet (20 mg total) by mouth daily. 90 tablet 3 024 Active spironolactone (ALDACTONE) 25 MG tabletIndication s:Primary hypertension Take 1 tablet (25 mg total) by mouth daily. 90 tablet 3 024 Active budesonide-glyco pyrrolate-formot mala (BREZTRI AEROSPHERE) 160-9-4.8 MCG/ACT inhalerIndicatio ns:Centrilobular emphysema (CMS/HCC HHS/HCC) Inhale 2 puffs into the lungs 2 (two) times daily. 11 g 025 Active albuterol sulfate HFA 108 (90 Base) MCG/ACT inhalerIndicatio ns:Unilateral emphysema (CMS/HCC HHS/HCC) Inhale 2 puffs into the lungs every 4 (four) hours as needed for Wheezing or Shortness of breath. 54 g 3 025 Active fluticasone propionate (FLONASE) 50 MCG/ACT nasal sprayIndications :Dysfunction of both eustachian tubes 2 sprays by Nasal route daily. 15.8 mL 11 025 Active omeprazole (PRILOSEC) 40 MG capsuleIndicatio ns:Gastroesophag eal reflux disease Take 1 capsule by mouth once daily 90 capsule 025 Active tirzepatide (ZEPBOUND) 2.5 MG/0.5ML injectionIndicat ions:Weight Loss Inject 2.5 mg into the skin once a week. Indications: Weight Loss 2 mL 1 Active HYDROcodone-acet aminophen (NORCO) 5-325 MG tabletIndication s:Chronic Pain Take 1 tablet by mouth 2 (two) times daily as needed. Indications: Chronic Pain 60 tablet Active lisinopril (PRINIVIL) 10 MG tabletIndication s:Primary hypertension Take 1 tablet by mouth once daily 90 tablet Active lisinopril (PRINIVIL) 10 MG tabletIndication s:Primary hypertension Take 1 tablet (10 mg total) by mouth daily. 90 tablet 025 2024 Discontinued HYDROcodone-acet aminophen (NORCO) 5-325 MG tabletIndication s:Chronic Pain Take 1 tablet by mouth 2 (two) times daily as needed. Indications: Chronic Pain 60 tablet 025 2024 Discontinued(R eosusaner) Hospital, Clinic, or Other Facility Administered Medication Ordered Dose Route Frequency Start Date End Date Status sodium hyaluronate (DUROLANE) injection 60 mgIndications:Primary osteoarthritis of both knees 60 mg IX Once 05/11/2025 05/11/2025 Ended sodium hyaluronate (DUROLANE) injection 60 mgIndications:Primary osteoarthritis of both knees 60 mg IX Once 05/11/2025 05/11/2025 Ended lidocaine (XYLOCAINE) 2 % injection 3 mLIndications:Primary osteoarthritis of both knees 3 mL Other Once 05/11/2025 05/11/2025 Ended Active Problems Problem Noted Date Diagnosed Date Current smoker 03/11/2025 Diastolic dysfunction 03/11/2025 Dyslipidemia 03/11/2025 History of tobacco abuse 03/11/2025 Morbid obesity 03/11/2025 Pulmonary hypertension 03/11/2025 Wound of abdomen 03/11/2025 Class 3 severe obesity due t o excess calories with serious comorbidity and body mass index (BMI) of 40.0 to 44.9 in adult 03/11/2025 Umbilical hernia without obstruction and without gangrene 03/11/2025 Primary osteoarthritis of both knees 02/09/2025 Chronic pain of left knee 11/28/2024 Lumbar back pain with radicu lopathy affecting right lower extremity 03/12/2024 Neuropathy 01/30/2023 Mixed stress and urge urinary incontinence 01/30 Frequency of micturition 01/30/2023 Other atopic dermatitis 05/31/2022 Polyarthralgia 04/05/2022 Impaired mobility 04/05/2022 Blood glucose elevated 11/25/2021 Fall, initial encounter 09/01/2020 Chronic pain of right knee 04/20/2020 Chronic GERD 02/11/2016 Lower back pain 02/11/2016 Congestive heart failure 08/10/2015 Chronic obstructive airway disease 07/27/2015 Decreased hearing 07/27/2015 HTN (hypertension) 07/27/2015 Obstructive sleep apnea 07/27/2015 Resolved Problems Problem Noted Date Diagnosed Date Resolved Date Chronic respiratory failure with hypoxia 01/30/2023 11/28/2024 Impaired mobility and activi ties of daily living 04/05/2022 04/10/2022 Acute pain of right knee 09/01/202001/2023 Severe obesity (BMI >= 40) 10/29/2019 0 03/11/2025 Acute sinusitis 02/28/2018 01/30/2023 Vitamin D deficiency 08/10/2015 025 Encounters Date Type Department Care Team Description 05/13/2025 Scan [facility] SRV[facility] Scanned, Doc [facility] 05/11/2025 10:00 AM RAILROAD DISPATCHER Office Visit [facility] [address] [address] Esteban Lu MD Procedure (Bilateral knee pain) 05/11/2025 Travel 05/01/2025 Telephone [facility] Family & Internal Medicine [address] [phone] Tess Landin FNP Medication Request 04/27/2025 Scan [facility] INFO SRVCS Scanned, Doc [facility] 04/27/2025 MyChart Message [facility] [address] [place] [address] Robbin, [facility] Provider Colonoscopy and mammogram 04/27/2025 Patient Outreach [facility] Family [facility] Internal Medicine [address] [phone] Maria Guadalupe Su, MEENAKSHI Other ([facility]) 04/23/2025 10:20 AM CDT Laboratory Only [facility] Family Internal [address] [address] Tess Landin FNP 04/23/2025 Results Follow-Up [facility] [address] [address] Tess Landin FNP HEMOGLOBIN, GLYCOSYLATED, MAGNESIUM, FOLIC ACID SERUM, Additional followed-up results: 8 04/23/2025 Travel 04/20/2025 Scan [facility] SRVCS Scanned, Doc Med [facility] Lab (SCAN); CT (SCAN) 04/20/[address] [address] Tess Landin FNP Advice 04/16/2025 9:00 AM CDT Office Visit [address] [phone] Tess Landin FNP Weight Check (Patient presenting to the office for 1 month f/u Zepbound - tolerating well so far- ) 04/16/2025 Travel 03/31/[address] [address] Tess Landin FNP Medication Request; Prior Authorization (Zepbound 2.5mg ) 03/19/2025 Telephone [facility]is[facility] - [facility] [address], [address] [place] [address] Polina Ambriz MD Question 03/16/2025 Scan [facility] SRVCS Scanned, Doc [facility] 03/11/2025 11:00 AM CDT Telemedicine [facility] [address] [address] Kilzer, Tess, INTERNATIONAL RECRUITER Follow Up (Patient presenting virtually today to discuss weight medication and increased nasal congestion, and set for surgery with Dr. Santos ) 03/11/2025 Telephone [facility] [address] [address] Tess Landin FNP Prior Authorization (Zepbound 2.5mg ) 03/11/2025 Travel 03/09/2025 Orders Only [facility] [address] [address] Tess Landin FNP 03/09/[address] [address] Tess Landin FNP Information 03/02/2025 Scan [facility] SRVCS Scanned, Doc [facility] 03/02/[address] [address] Tess Landin FNP Information from Last 3 Months Immunizations Immunization Administration Dates Next Due Fluzone 6 Months+ Quad (0.5 mL Prefilled Syringe ) 04/05/2020 Fluzone High Dose - >Age 65 (Prefilled Syringe) 04/04/2022 Influenza Adult (Generic) 08/21/2017 Pneumococcal (Prevnar 20) 11/22/2021 Td (Generic) 03/10/2015 Family History Medical History Relation Comments Diabetes Father Heart Father Cancer Maternal Grandmother colon Alzheimers Mother Hypertension Mother Relation Status Comments Father Maternal Grandmother Mother Social History Tobacco Use Types Packs/Day Years Used Date Smoking Tobacco: Former Cigarettes 1.5 40 S tarted: 10/06/1984 Passive Smoke Exposure: Current Smokeless Tobacco: Never Tobacco Cessation:Counseling Given: Yes Comments:Provider to direct selling counselor Alcohol Use Standard Drinks/Week Comments Yes 10 (1 standard drink = 0.6 oz pu re alcohol) Weekly AUDIT-C Answer Date Recorded Frequency of Alcohol Consumption Never 10/29/2019 Average Number of Drinks Not on file 020 Frequency of Binge Drinking Less than monthly PHQ-2 Answer Date Recorded Patient Health Questionnaire-2 Score 0 11/28/2024 Comments No Sex and Gender Information Value Date Recorded Sex Assigned at Female 11/28/2024 8:40 AM CDT Legal Sex Female 8:31 PM CDT Gender Identity Female 11/28/2024 8:40 AM CDT Sexual Orientation Not on file Last Filed Vital Signs Vital Sign Reading Time Taken Comments Blood Pressure 121/67 05/11/2025 9:55 AM RAILROAD DISPATCHER Pulse 66 05/11/2025 9:55 AM RAILROAD DISPATCHER Temperature 36.7 C (98.1 F) 04/16/2025 9:08 AM CDT Respiratory Rate 18 04/16/2025 9:08 AM CDT Oxygen Saturation 98% 04/16/2025 9:08 AM CDT Inhaled Oxygen Concentration - - Weight 108.4 kg (239 lb) 05/11/2025 9:55 AM RAILROAD DISPATCHER Height 160 cm (5' 3) 05/11/2025 9:55 AM RAILROAD DISPATCHER Body Mass Index 42.34 05/11/2025 9:55 AM RAILROAD DISPATCHER Plan of Treatment Upcoming Encounters Date Type Department Care Team (Late st Contact Info) Description 08/11/2025 9:00 AM RAILROAD DISPATCHER Office Visit [facility] Orthopedic & Sports Medicine - [place] [address] [place], [place] [address] Esteban Lu MD [address] [place] [address] Health Maintenance Due Date Last Done Comments Hepatitis C 1973 DTaP, Tdap and Td Vaccines ( 1 - Tdap) 06/05/2025 03/10/2015 Postponed from 03/11 (Going to Outside Clinic) Colorectal Cancer Screening Colonoscopy (10 Years) 10/15/2025 Postponed from (Patient Refused) Lung Cancer Screening 10/15/2025 04/03/2022 Postpo amina from 04/03/2023 (Going to Outside Clinic) Annual Medicare Wellness Visit 04/16/2026 Postponed from 05/06 (Patient Refused) COVID-19 Vaccine (1 - 2024-2 6 season) 2026 Postponed from 02/23 (Patient Refused) Dexa Scan (General) 04/16/2026 Postpone d from 2021 (Patient Refused) Influenza Adult (#1) 2026 04/04/2022, 04/05/2020, 08/21/2017 Postponed from 03/25/2025 (Patient Refused) Mammogram Screening 04/16/2026 01/27/2022, 01/12/2022 Postponed from 01/28/2024 (Patient Refused) RSV Immunization or 60+ Years (1 - Risk 60-74 years 1-dose series) 04/16/2026 Postponed from 04/25 (Going to Outside Clinic) Zoster Vaccines (1 of 2) 04/16/2026 Pos tponed from 2006 (Going to Outside Clinic) Pneumococcal Vaccine: 50+ Years Completed 11/22/2021 PHQ-2 (Physician [place]) Completed 11/28/2024 Hepatitis A Vaccines Aged Out No long er eligible based on patient's age to complete this topic Meningococcal B Vaccine Aged Out No l onger eligible based on patient's age to complete this topic Meningococcal Vaccine Aged Out No cierra ben eligible based on patient's age to complete this topic RSV Immunizations Under 20 Months Aged Out No longer eligible b ased on patient's age to complete this topic Procedures Procedure Name Priority Date/Time Associated Diagnosis Comments ARTHROCENTESIS MAJOR JOINT W/ ULTRASOUND GUIDANCE Routine 05/11/2025 10:00 AM RAILROAD DISPATCHER Primary osteoarthritis of both knees OUS GUIDE NEEDLE PLCMT ORTHO Routine 05/11/2025 9:51 AM RAILROAD DISPATCHER Primary osteoarthritis of both knees COLLECTION VENOUS BLOOD VENIPUNCTURE Routine 04/23/2025 10:46 AM CDT Blood glucose elevated Primary hypertension Class 3 severe obesity due to excess calories with serious comorbidity and body mass index (BMI) of 40.0 to 44.9 in adult ([facility]) Dyslipidemia Vitamin D deficiency, unspecified CBC W/DIFF AUTOMATED Routine 04/23/2025 10:46 AM CDT Class 3 severe obesity due to excess calories with serious comorbidity and body mass index (BMI) of 40.0 to 44.9 in adult ([facility]) Primary hypertension Dyslipidemia LIPID PANEL Routine 04/23/2025 10:46 AM CDT Class 3 severe obesity due to excess calories with serious comorbidity and body mass index (BMI) of 40.0 to 44.9 in adult ([facility]) Primary hypertension Dyslipidemia TSH W/REFLEX Routine 04/23/2025 10:46 AM CDT Class 3 severe obesity due to excess calories with serious comorbidity and body mass index (BMI) of 40.0 to 44.9 in adult ([facility]) Primary hypertension Dyslipidemia VITAMIN D, 25 OH Routine 04/23/2025 10:4 6 AM CDT Vitamin D deficiency, unspecified URIC ACID BLOOD Routine 04/23/2025 10:46 AM CDT Class 3 severe obesity due to excess calories with serious comorbidity and body mass index (BMI) of 40.0 to 44.9 in adult ([facility]) Primary hypertension Dyslipidemia COMPREHENSIVE METABOLIC PANEL Routine 04/23/2025 10:46 AM CDT Class 3 severe obesity due to excess calories with serious comorbidity and body mass index (BMI) of 40.0 to 44.9 in adult ([facility]) Primary hypertension Dyslipidemia URINALYSIS Routine 04/23/2025 10:46 AM CDT Class 3 severe obesity due to excess calories with serious comorbidity and body mass index (BMI) of 40.0 to 44.9 in adult ([facility]) Primary hypertension Dyslipidemia VITAMIN B-12 Routine 04/23/2025 10:46 AM CDT Blood glucose elevated FOLIC ACID SERUM Routine 04/23/2025 10:4 6 AM CDT Blood glucose elevated MAGNESIUM Routine 04/23/2025 10:46 AM CDT Blood glucose elevated Primary hypertension HEMOGLOBIN, GLYCOSYLATED Routine 04/23/2025 10:46 AM CDT Blood glucose elevated CT GENERIC 04/20/2025 OUTSIDE LAB (SCAN ORDER) 04/20/2025 OUTSIDE LAB (SCAN ORDER) 04/20/2025 OUTSIDE LAB (SCAN ORDER) 04/20/2025 CT LUNG SCREENING Routine 04/03/2022 11: 02 AM CDT Nicotine dependence, cigarettes, with other nicotine-induced disorders MAMMOGRAM GENERIC (SCAN ORDER) 01/27/2022 from Last 3 Months or Most Recently Relevant to Health Maintenance Results * ARTHROCENTESIS MAJOR JOINT W/ ULTRASOUND GUIDANCE (05/11/2025 10:00 AM RAILROAD DISPATCHER) Esteban Carrillo MD - 05/11/2025 10:00 AM RAILROAD DISPATCHER Esteban Lu MD 05/11/2025 10:26 AM *Lg Jt Arthrocentesis: bilateral knee Durolane injection on 05/11/2025 10:00 AM Indications: pain Details: 22 G needle, ultrasound-guided lateral approach Medications (Right): (3 mL Euflexxa injected knee after local analgesia with 3 cc 2% lidocaine) Medications (Left): (3 mL Euflexxa injected knee after local analgesia with 3 cc 2% lidocaine) Outcome: tolerated well, no immediate complications Procedure, treatment alternatives, risks and benefits explained, specific risks discussed. Consent was given by the patient. Patient was prepped and draped in the usual sterile fashion. us Esteban Lu MD PROCEDURE/MINOR SURGICAL ORDERA BLES Final Result * OUS GUIDE NEEDLE PLCMT ORTHO (05/11/2025 9:51 AM RAILROAD DISPATCHER) Anatomical Region Laterality Modality Ultrasound 05/11/2025 9:55 AM RAILROAD DISPATCHER Narrative 05/11/2025 9:55 AM RAILROAD DISPATCHER This report does not contain a radiologist's interpretation. Please review associated procedure and/or operative report. Procedure Note Anne-Marie Ochoa MD - 05/11/2025 This report does not contain a radiologist's interpretation. Please review associated procedure and/or operative report. us Esteban Lu MD ULTRASOUND Final Result * TSH W/REFLEX (04/23/2025 10:46 AM CDT) TSH 3.475 0.358 - 3.740 uIU/ML 04/23/2025 3:58 PM CDT [facility] 04/23/2025 10:4 6 AM CDT Tess Landin [facility] Final Result Performing Organization Address [facility] Co de Phone Number [facility] [address] [place] [address], [place] [phone] * (ABNORMAL) HEMOGLOBIN, GLYCOSYLATED (04/23/2025 10:46 AM CDT) HGB A1C 5.9 4.5 - 6.2 % 04/23/2025 3:38 PM CDT [facility] ESTIMATED AVG GLUCOSE 123(H) 74 - 106 MG/DL 04/23/2025 3:38 PM CDT [facility] 04/23/2025 10:4 6 AM CDT Tess Myersaudrey [facility] Final Result Performing Organization Address [facility] de Phone Number [address] [address], [place] [phone] * (ABNORMAL) URINALYSIS (04/23/2025 10:46 AM CDT) COLOR (U) YELLOW 04/23/2025 2:42 PM CDT [facility] TRANSPARENCY CLEAR CLEAR 04/23/2025 2:42 PM CDT [facility] SPECIFIC GRAVITY (U) 1.015 1.003 - 1.040 04/23/2025 2:42 PM CDT [facility] U PH 8.0 5.0 - 9.0 04/23/2025 2:42 PM CDT [facility] PROTEIN RANDOM (U) NEGATIVE NEGATIVE 04/23/2025 2:42 PM CDT [facility] GLUCOSE (U) NEGATIVE NEGATIVE 04/23/2025 2:42 PM CDT [facility] KETONES MG/DL (U) NEGATIVE NEGATIVE 04/23/2025 2:42 PM CDT [facility] BILIRUBIN (U) NEGATIVE NEGATIVE 04/23/2025 2:42 PM CDT [facility] BLOOD (U) NEGATIVE NEGATIVE 04/23/2025 2:42 PM CDT [facility] UROBILINOGEN 2.0 0.0 - 2.0 EU/DL 04/23/2025 2:42 PM CDT [facility] NITRITES NEGATIVE NEGATIVE 04/23/2025 2:42 PM CDT [facility] LEUKOCYTES (U) NEGATIVE NEGATIVE 04/23/2025 2:42 PM CDT [facility] RBC/HPF 0-3 0 - 3 /HPF 04/23/2025 2:42 PM CDT [facility] WBC/HPF 0-3 0 - 3 /HPF 04/23/2025 2:42 PM CDT [facility] EPI/HPF 0-3 /HPF 04/23/2025 2:42 PM CDT [facility] BACTERIA (U) TRACE(A) NONE SEEN 04/23/2025 2:42 PM CDT [facility] MUCUS FEW 04/23/2025 2:42 PM CDT [facility] URINE SPECIMEN OBTAINED BY CLEAN CATCH PROCEDURE / Unknown 04/23/2025 10:46 AM CDT us Tess OBRIENP URINE ORDERABLES Final Result [facility] [address] [place] [address], * VITAMIN B-12 (04/23/2025 10:46 AM CDT) VITAMIN B12 S/P/B 769 193 - 986 PG/ML 04/23/2025 3:58 PM CDT -[facility] 04/23/2025 10:4 6 AM CDT Tess Landin [facility] Final Result -[facility] [address] [place] [address], [place] [phone] * COMPREHENSIVE METABOLIC PANEL (04/23/2025 10:46 AM CDT) SODIUM S/P/B 143 136 - 145 MMOL/L 04/23/2025 3:58 PM CDT -[facility] POTASSIUM S/P/B 4.5 3.5 - 5.1 MMOL/L 04/23/2025 3:58 PM CDT -[facility] CHLORIDE S/P/B 103 98 - 107 MMOL/L 04/23/2025 3:58 PM CDT -[facility] CO2 31.4 21 - 32 MMOL/L 04/23/2025 3:58 PM CDT -[facility] GLUCOSE 93 70 - 99 MG/DL 04/23/2025 3:58 PM CDT -[facility] BUN 10 7 - 18 MG/DL 04/23/2025 3:58 PM CDT -[facility] CREATININE S/P/B 0.65 0.55 - 1.02 MG/DL 04/23/2025 3:58 PM CDT [facility] CALCIUM S/P/B 9.2 8.4 - 10.5 MG/DL 04/23/2025 3:58 PM CDT -[facility] BILIRUBIN TOTAL S/P/B 0.6 0.2 - 1.0 MG/DL 04/23/2025 3:58 PM CDT -[facility] ALKALINE PHOSPHATASE S/P/B 71 55 - 142 U/L 04/23/2025 3:58 PM CDT [facility] AST 17 15 - 37 U/L 04/23/2025 3:58 PM CDT [facility] ALT 21 14 - 59 U/L 04/23/2025 3:58 PM CDT [facility] TOTAL PROTEIN S/P/B 6.9 6.4 - 8.2 G/DL 04/23/2025 3:58 PM CDT [facility] ALBUMIN S/P/B 3.6 3.4 - 5.0 G/DL 04/23/2025 3:58 PM CDT [facility] ANION GAP 8.6 5 - 15 MMOL/L 04/23/2025 3:58 PM CDT [facility] Comment:REFERENCE RANGE NOT ESTABLISHED OSMOLALITY (CALC) 295 MOSM/KG 025 3:58 PM CDT [facility] Comment:REFERENCE RANGE NOT ESTABLISHED GFR ESTIMATE >90 >90 ML/MIN/1. 73 M2 04/23/2025 3:58 PM CDT [facility] GFR NOTES GFR REFERENCE S: 04/23/2025 3:58 PM T [facility] Comment: THE ESTIMATED GFR IS CALCULATED USING THE 2020 CKD-EPI EQUATION. THE FOLLOWING CATEGORIES FOR GRADING RENAL FUNCTION ARE RECOMMENDED BY THE INTERNATIONAL SOCIETY OF NEPHROLOGY (KDIGO 2012 CLINICAL PRACTICE GUIDELINE). G1,NORMAL OR HIGH: >89 ml/min/1.73 m2 G2,MILDLY DECREASED: 60-89 ml/min/1.73 m2 G3A,MILDLY TO MODERATELY DECREASED: 45-59 ml/min/1.73 m2 G3B,MODERATELY TO SEVERELY DECREASED: 30-44 ml/min/1.73 m2 G4,SEVERELY DECREASED: 15-29 ml/min/1.73 m2 G5,KIDNEY FAILURE: <15 ml/min/1.73 m2 04/23/2025 10:4 6 AM CDT Tess Landin [employer] [facility] Final Result [facility] [address] [place] [address], [place] [phone] * LIPID PANEL (04/23/2025 10:46 AM CDT) CHOLESTEROL 161 <200 MG/DL 04/23/2025 3:58 PM CDT [facility] TRIGLYCERIDES 103 <150 MG/DL 04/23/2025 3:58 PM CDT [facility] HDL 53 >40 MG/DL 04/23/2025 3:58 PM CDT [facility] LDL-C 87 <100 MG/DL 04/23/2025 3:58 PM CDT [facility] VLDL CALCULATION 21 5 - 28 MG/DL 04/23/2025 3:58 PM CDT [facility] CHOL/HDL RATIO 3.0 0.0 - 4.0 04/23/2025 3:58 PM CDT [facility] LDL/HDL 1.6 0.41 - 2.13 04/23/2025 3:58 PM CDT [facility] NON HDL CHOLESTEROL 108 <140 MG/DL 04/23/2025 3:58 PM CDT [facility] 04/23/2025 10:4 6 AM CDT Tess Landin [employer] [facility] Final Result [facility] [address] [place] [address], [place] [phone] * FOLIC ACID SERUM (04/23/2025 10:46 AM CDT) FOLATE >20.0 8.6 - 58.9 NG/ML 04/23/2025 3:54 PM CDT [facility] 04/23/2025 10:4 6 AM CDT Tess Landin [facility] Final Result -[facility] [place] [address] [facility] [place] [address], [place] [phone] * (ABNORMAL) CBC W/DIFF AUTOMATED (04/23/2025 10:46 AM CDT) [facility] WBC 5.22 4.00 - 10.80 x10'3/uL 04/23/2025 2:28 PM CDT [facility] RBC 5.02 4.10 - 5.40 x10'6/uL 04/23/2025 2:28 PM CDT [facility] HGB 13.4 12.0 - 16.0 G/DL 04/23/2025 2:28 PM CDT [facility] HCT 44.0 36.0 - 47.0 % 04/23/2025 2:28 PM CDT [facility] MCV 87.6 78.0 - 100.0 FL 04/23/2025 2:28 PM CDT [facility] MCH 26.7(L) 27.0 - 31.0 PG 04/23/2025 2:28 PM CDT [facility] MCHC 30.5(L) 33.0 - 36.0 G/DL 04/23/2025 2:28 PM CDT [facility] RDW 14.6(H) 11.5 - 14.5 % 04/23/2025 2:28 PM CDT [facility] PLT 238 150 - 350 x10'3/uL 04/23/2025 2:28 PM CDT [facility] MPV 9.3 7.4 - 10.4 FL 04/23/2025 2:28 PM CDT [facility] DIFFERENTIAL TYPE AUTOMATED DIFFERENTIAL 04/23/2025 2:28 PM CDT [facility] NEUTROPHILS % 69.4 % 04/23/2025 2:28 PM CDT [facility] LYMPHOCYTES % 20.3 % 04/23/2025 2:28 PM CDT [facility] MONOCYTES % 8.2 % 04/23/2025 2:28 PM CDT [facility] EOSINOPHILS % 1.5 % 04/23/2025 2:28 PM CDT [facility] BASOPHILS % 0.4 % 04/23/2025 2:28 PM CDT [facility] IMMATURE GRANS % 0.2 % 04/23/2025 2:28 PM CDT [facility] ABS. NEUTROPHILS 3.62 1.60 - 8.30 x10'3/uL 04/23/2025 2:28 PM CDT [facility] ABS. LYMPHOCYTES 1.06 0.80 - 4.70 x10'3/uL 04/23/2025 2:28 PM CDT [facility] ABS. MONOCYTES 0.43 0.00 - 1.50 x10'3/uL 04/23/2025 2:28 PM CDT [facility] ABS. EOSINOPHILS 0.08 0.00 - 0.40 x10'3/uL 04/23/2025 2:28 PM CDT [facility] ABS. BASOPHILS 0.02 0.00 - 0.20 x10'3/uL 04/23/2025 2:28 PM CDT [facility] ABS. IMMATURE GRANULOCYTES 0.01 0.00 - 0.03 x10'3/uL 04/23/2025 2:28 PM CDT [facility] 04/23/2025 10:4 6 AM CDT us Tess [facility] Final Result [facility] [place], [address] [place] [address], * VITAMIN D, 25 [place] (04/23/2025 10:46 AM CDT) VITAMIN D 25 HYDROXY TOTAL S/P/B 54.7 30 - 100 NG/ML 04/23/2025 3:58 PM CDT [facility] Comment: DEFICIENT <20 INSUFFICIENT 20-30 SUFFICIENT 30-100 04/23/2025 10:4 6 AM CDT Tess Landin [facility] Final Result Performing Organization Address [facility] Co de Phone Number [address] [phone], * MAGNESIUM (04/23/2025 10:46 AM CDT) MAGNESIUM 2.2 1.8 - 2.4 MG/DL 04/23/2025 3:58 PM CDT [facility] 04/23/2025 10:4 6 AM CDT us Tess Landin [facility] Final Result Performing Organization Address [facility] Co de Phone Number [address] [address], * URIC ACID BLOOD (04/23/2025 10:46 AM CDT) URIC ACID 4.4 2.6 - 6.0 MG/DL 04/23/2025 2:59 PM CDT [facility] 04/23/2025 10:4 6 AM CDT us Tess Landin [facility] Final Result [facility], [place] [address] [facility] [place] [address], * CT GENERIC (04/20/2025) Anatomical Region Laterality Modality Other 04/20/2025 [employer] Scanned SCANNING Final Resu lt * OUTSIDE LAB (SCAN ORDER) (04/20/2025) Only the most recent of3 resultswithin the time period is included. 04/20/2025 [employer] [facility] Scanned SCANNING Final Resu lt * CT LUNG SCREENING (04/03/2022 11:02 AM CDT) Anatomical Region Laterality Modality Chest Computed Tomogra phy 04/03/2022 2:40 PM CDT Impressions 04/03/2022 3:06 PM CDT =====Impression:===== LUNG-RADS Category/Recommendation: Category 1 /Continue annual screening with LDCT in 12 months. Suggest follow up exam on or around 2023-04-03. LUNG-RADS category S: Negative, no new/unknown potentially significant incidental findings requiring urgent additional evaluation. Other Incidental Findings: As above. Thank you for choosing the [facility]'s Lung Screening Program. Ordered By: POLINA AMBRIZ Interpreted By: Chapo Brandt MD, 04/03/2022 2:40 PM Narrative 04/03/2022 3:06 PM CDT Examination: Lung Screening Low-Dose Ct Thorax Without Contrast Exam date/time: 04/03/2022 10:43 AM Clinical history: Asymptomatic patient meeting NCCN high-risk criteria for lung screening. * 66 years * 30 pack years or greater * Current smoker of have quit smoking within the last 15 years. Comparison: None. Technique: Noncontrast, helical, low-dose CT (LDCT) chest per standard departmental protocol. A dose lowering technique was used for this procedure, which may include, but is not limited to, dose reduction technique, automated exposure control, the use of iterative reconstruction, and ALARA (As Low As Reasonably Achievable) / Image Gently techniques. FINDINGS: Lung Screening Specific (LUNG-RADS): No suspicious lung nodules. Potentially Significant Incidentals (LUNG-RADS category S): None. Additional Findings: Multiple calcified granulomas. Peribronchial thickening greatest in the right lower lobe, likely chronic bronchitis minimal atelectasis or fibrotic change in the lung bases. Mild coronary artery calcifications. Atherosclerotic aorta. Few scattered vascular calcifications elsewhere. Right hilar lymph node calcifications, old healed granulomatous disease. No suspicious adenopathy. Cholecystectomy clips. Diffuse degenerative changes. Diffuse idiopathic skeletal hyperostosis in the thoracic spine. Scoliosis. Procedure Note Chapo Brandt MD - 04/03/2022 Examination: Lung Screening Low-Dose Ct Thorax Without Contrast Exam date/time: 04/03/2022 10:43 AM Clinical history: Asymptomatic patient meeting NCCN high-risk criteria forlung screening. * 66 years * 30 pack years or greater * Current smoker of have quit smoking within the last 15 years. Comparison: None. Technique: Noncontrast, helical, low-dose CT (LDCT) chest per standarddepartmental protocol. A dose lowering technique was used for thisprocedure, which may include, but is not limited to, dose reductiontechnique, automated exposure control, the use of iterativereconstruction, and ALARA (As Low As Reasonably Achievable) / Image Gentlytechniques. FINDINGS: Lung Screening Specific (LUNG-RADS): No suspicious lung nodules. Potentially Significant Incidentals (LUNG-RADS category S): None. Additional Findings: Multiple calcified granulomas. Peribronchialthickening greatest in the right lower lobe, likely chronic bronchitisminimal atelectasis or fibrotic change in the lung bases. Mild coronaryartery calcifications. Atherosclerotic aorta. Few scattered vascularcalcifications elsewhere. Right hilar lymph node calcifications, oldhealed granulomatous disease. No suspicious adenopathy. Cholecystectomyclips. Diffuse degenerative changes. Diffuse idiopathic skeletalhyperostosis in the thoracic spine. Scoliosis. =====Impression:===== LUNG-RADS Category/Recommendation: Category 1 /Continue annual screeningwith LDCT in 12 months. Suggest follow up exam on or around 2023-04-03. LUNG-RADS category S: Negative, no new/unknown potentially significantincidental findings requiring urgent additional evaluation. Other Incidental Findings: As above. Thank you for choosing the [facility] Lung ScreeningProgram. Ordered By: POLINA AMBRIZ Interpreted By: Chapo Brandt MD, 04/03/2022 2:40 PM us Polina Ambriz MD CT Final Result * MAMMOGRAM GENERIC (01/27/2022) Anatomical Region Laterality Modality Other 01/27/2022 Narrative 01/27/2022 Ordered by an unspecified provider. us Documents Scanned SCANNING Final Result from Last 3 Months or Most Recently Relevant to Health Maintenance Insurance MEDICARE Care Teams Molding Line Operator Relationship Specialty Start Date End Date Tess Landin FNP [address] [place] [id number] PCP - General Nurse Practitioner Family 05/23/18
--- OUTSIDE RECORDS SUMMARY | 2025-05-28 07:37 | XMS_ITS | Encounter Summary ---
Author Organization [facility] Address [address] [place] [address] Care Team Providers Care Poultry Trimmer Name Role Phone Tess Landin HAMZAH Primary Care Provider [phone] Encounter Details Date Type Department Care Team (Late st Contact Info) Description 12/20/2022 MyChart Message Enc [facility] [address] [place], [place] [id number] [facility] Provider Air Quality Message Social History Tobacco Use Types Packs/Day Years Used Date Smoking Tobacco: Every Day Cigarettes 1.5 40 Smokeless Tobacco: Never Comments:Provider to certified substance abuse counselor Alcohol Use Standard Drinks/Week Comments Never 0 (1 standard drink = 0.6 oz pur e alcohol) AUDIT-C Answer Date Recorded Frequency of Alcohol Consumption Never 10/29/2019 Average Number of Drinks Not on file 020 Frequency of Binge Drinking Less than monthly PHQ-2 Answer Date Recorded PHQ-2 Score - If the patient scores above 3, please move on to questions 3-9 0 03/03/2022 Comments No Sex and Gender Information Value Date Recorded Sex Assigned at Female 11/28/2024 8:40 AM CDT Legal Sex Female 8:31 PM CDT Gender Identity Female 11/28/2024 8:40 AM CDT Sexual Orientation Not on file documented as of this encounter Plan of Treatment Upcoming Encounters Date Type Department Care Team (Late st Contact Info) Description 08/11/2025 9:00 AM CIRCLE BEVELER Office Visit [facility] Medical [facility] Orthopedic & Sports Medicine - [place] [facility] [place] [address] Esteban Lu MD [address] [place] [address] documented as of this encounter Visit Diagnoses Not on filedocumented in this encounter Additional Health Concerns Infection Onset Date Last Indicated Resolved Time COVID-19 Rule Out 01/11/2023 01/12/2023 01/15/2023 8:08 AM CDT Assessment Noted Time PHQ-9 Depression Total Score: 0 11/23/19 10:26 AM CDT documented as of this encounter Care Teams Poultry Trimmer Relationship Specialty Start Date End Date Tess Landin FNP [address] [place] [address] PCP - General Nurse Practitioner Family 05/23/18 documented as of this encounter
--- OUTSIDE RECORDS SUMMARY | 2025-05-28 07:37 | XMS_ITS | Encounter Summary ---
Author Organization [facility] Address [address] [place] [address] Care Team Providers Care Radiology Manager Name Role Phone Tess Landin Primary Care Provider [phone] Encounter Details Date Type Department Care Team (Late st Contact Info) Description 04/23/2025 Results Follow-Up [facility] Family & Internal Medicine [facility] [address] [place] [address] Tess Landin FNP [address] [place], [place] [phone] HEMOGLOBIN, GLYCOSYLATED, MAGNESIUM, FOLIC ACID SERUM, Additional followed-up results: 8 Social History Tobacco Use Types Packs/Day Years Used Date Smoking Tobacco: Former Cigarettes 1.5 40 S tarted: 10/06/1984 Passive Smoke Exposure: Current Smokeless Tobacco: Never Comments:Provider to estate planning counselor Alcohol Use Standard Drinks/Week Comments Yes [...] on file documented as of this encounter Progress Notes * HAMZAH Davies - 04/23/2025 4:19 PM CDT Labs show that she needs to continue working on decreasing the sugars and carbohydrates in her diet, as her A1c is 5.9 and still in the prediabetic range Her thyroid level looks good Her cholesterol levels look good She should continue her vitamin D supplement daily Her other labs look good documented in this encounter Plan of Treatment Upcoming Encounters Date Type Department Care Team (Late st Contact Info) Description 08/11/2025 9:00 AM FRICTION WELDING MACHINE OPERATOR Office Visit [facility] Orthopedic & Sports Medicine - [place] [address] [place] [address] Esteban Lu MD [address] [place] [address] documented as of this encounter Visit Diagnoses Not on filedocumented in this encounter Additional Health Concerns Assessment Noted Time PHQ-9 Depression Total Score: 0 11/23/19 22 10:26 AM CDT documented as of this encounter Care Teams Radiology Manager Relationship Specialty Start Date End Date Tess Landin FNP [address] [place] [address] PCP - General Nurse Practitioner Family 05/23/18 documented as of this encounter
--- OUTSIDE RECORDS SUMMARY | 2025-05-28 07:37 | XMS_ITS | Encounter Summary ---
Author Organization [facility] Address [address] [place] [address] Care Team Providers Care Awning Frame Maker Name Role Phone Tess Landin HAMZAH Primary Care Provider [phone] Encounter Details Date Type Department Care Team (Late st Contact Info) Description 04/27/[address] [address] [place], [facility] Provider Colonoscopy and mammogram Social History Tobacco Use Types Packs/Day Years Used Date Smoking Tobacco: Former Cigarettes 1.5 40 S tarted: 10/06/1984 Passive Smoke Exposure: Current Smokeless Tobacco: Never Comments:Provider to on awake counselor Alcohol Use Standard Drinks/Week Comments Yes [...] Encounters Date Type Department Care Team (Late Contact Info) Description 08/11/2025 9:00 AM GAME ADVISOR Office Visit [facility] Medical Group Orthopedic & Sports Medicine - [place] [address] Esteban Lu MD [address] [place] [address] documented as of this encounter Visit Diagnoses Not on filedocumented in this encounter Additional Health Concerns Assessment Noted Time PHQ-9 Depression Total Score: 0 11/23/19 22 10:26 AM CDT documented as of this encounter Care Teams Awning Frame Maker Relationship Specialty Start Date End Date Tess Landin FNP [address] [place] [phone] PCP - General Nurse Practitioner Family 05/23/18 documented as of this encounter
--- OUTSIDE RECORDS SUMMARY | 2025-05-28 07:37 | XMS_ITS | Clinical Summary ---
Author Organization [facility] [employer] Address [address] [facility] [place] [address] Care Team Providers Care Logging Worker Name Role Phone Tess Landin APRN-GASOLINE TRUCK OPERATOR Primary Care Provider [phone] Source Comments [facility] [employer],non-owned Affiliates and Associated Physician Practices is amultiple site organization consisting of ambulatory clinics and hospital sitesin [place], [place], [place] and [place]. This disclosure is being madepursuant to the Care Everywhere program and may not contain all information available regarding this patient. Last updated 18.[facility] [employer] Social History Tobacco Use Types Packs/Day Years [...] DEPRESSION SCREENING 06/25/2024 COVID-19 VACCINE (1 - 2024-2 6 season) 2025 INFLUENZA VACCINE (#1) 2025 Respiratory [...] patient's age to complete this topic Insurance [facility] Care Teams Logging Worker Relationship Specialty Start Date End Date Tess Landin APRN-CNP [address] [place] [address] PCP - General 04/30/20
== END 2025-05-28 07:33 | disposition home or self-care (01) ==
PROVIDERS: PCP Nurse Practitioner Family; Visit Provider Internal Medicine Cardiovascular Disease
DX: Z01.810 Encounter for preprocedural cardiovascular examination (principal)
CPT/HCPCS: 78452; 93017; A9502; J2785